=== PATIENT | female | born 1980 | race Caucasian/White ===

== ENCOUNTER 2023-12-02 06:15 | Day surgery (SDC) | payer OTHER ==
[2023-11-29 10:12] VITALS: BMI 23.6
[2023-12-02] MEDS ORDERED: PROPOFOL 40 ML ONE (06:55)
[2023-12-02] MEDS ORDERED: ONDANSETRON 4 MG/2 ML VIAL ONE (06:55)
[2023-12-02] MEDS ORDERED: LIDOCAINE HCL/PF 2% SDV 5ML VIAL ONE (06:55)
[2023-12-02] MEDS ORDERED: MIDAZOLAM HCL 2 MG/2 ML SINGLE DOSE VIAL ONE (06:55)
[2023-12-02] MEDS ORDERED: DEXAMETHASONE SOD PHOSPHATE 4 MG/1 ML VIAL ONE (06:55)
[2023-12-02] MEDS ORDERED: oxyCODONE HCL 5 MG TABLET PO PRN ×2 (07:08)
[2023-12-02] MEDS ORDERED: LACTATED RINGERS SOLUTION 1,000 ML IV SCH (07:15)
[2023-12-02] MEDS ORDERED: VANCOMYCIN 1,000 MG VIAL (RESTRICTED TO ID ONLY) ONE (07:25)
[2023-12-02] MEDS ORDERED: BUPIVACAINE HCL/PF 2.5 MG/ML - 30 ML VIAL IJ ONE ×2 (07:26→07:42)
[2023-12-02] MEDS ORDERED: EPINEPHrine 1:1,000 1,000 MCG/ML ML ONE (07:26)
[2023-12-02] MEDS ORDERED: EPINEPHrine/PF 1 MG/1 ML (1:1,000) AMPULE ONE (07:26)
[2023-12-02] MEDS ORDERED: DEXAMETHASONE SOD PHOSPHATE/PF 10 MG/ML SDV ONE (07:42)
[2023-12-02] MEDS ORDERED: ceFAZolin SODIUM 1 GM VIAL ONE ×2 (07:52→12:07)
[2023-12-02] MEDS ORDERED: PROPOFOL 20 ML ONE ×3 (08:00→11:17)
[2023-12-02] MEDS ORDERED: hydrALAZINE HCL 20 MG/ML VIAL ONE (08:37)
[2023-12-02] MEDS ORDERED: HYDROmorphone HCL/PF 1 MG/ML VIAL ONE (09:18)
[2023-12-02] MEDS ORDERED: TRANEXAMIC ACID 1000 MG/10 ML VIAL ONE ×2 (09:45→11:21)
[2023-12-02] MEDS ORDERED: KETOROLAC TROMETHAMINE 30 MG/1 ML VIAL ONE (12:25)
[2023-12-02] MEDS ORDERED: ACETAMINOPHEN INJECTION 100 ML IVPB ONE (12:25)
[2023-12-02] MEDS: ACETAMINOPHEN 1000 MG/100 ML BAG IVPB ONE (12:30)
[2023-12-02] MEDS: KETOROLAC TROMETHAMINE 30 MG/1 ML VIAL IM ONE (12:35)
[2023-12-02] MEDS ORDERED: FENTANYL CITRATE/PF 50 MCG/ML VIAL ONE (12:53)
[2023-12-02] MEDS: ONDANSETRON 4 MG/2 ML VIAL ONE (12:58)
[2023-12-02] MEDS: ONDANSETRON 4 MG/2 ML VIAL IVPUSH PRN (13:00)
[2023-12-02 13:23] VITALS: RESP 18
[2023-12-02 13:48] VITALS: PULSE 68; TEMP 98.7
[2023-12-02 14:38] VITALS: BP 106/58
== END 2023-12-02 14:38 | disposition home or self-care (01) ==
LOC: FASU 06:15
PROVIDERS: ATTEND Orthopaedic Surgery Sports Medicine
PROC: 0SQC4ZZ Repair Right Knee Joint, Percutaneous Endoscopic Approach (ICD-10-PCS; 2023-12-02)
PROC: 0MQN0ZZ Repair Right Knee Bursa and Ligament, Open Approach (ICD-10-PCS; principal; 2023-12-02 08:28)
DX: S83.411A Sprain of medial collateral ligament of right knee, initial encounter (principal); S83.281A Other tear of lateral meniscus, current injury, right knee, initial encounter; M65.9 Synovitis and tenosynovitis, unspecified; X58.XXXA Exposure to other specified factors, initial encounter; Y93.9 Activity, unspecified; Y92.9 Unspecified place or not applicable
CPT/HCPCS: 81025; 94760; C1713; J0131

== ENCOUNTER 2024-05-05 06:19 | Day surgery (SDC) | payer OTHER ==
[2024-04-29 12:28] VITALS: BMI 24.3
[2024-05-05] MEDS ORDERED: MIDAZOLAM HCL 2 MG/2 ML SINGLE DOSE VIAL ONE (07:09)
[2024-05-05] MEDS ORDERED: BUPIVACAINE LIPOSOME/PF (EXPAREL) 266 MG/20 ML VIAL ONE (07:12)
[2024-05-05] MEDS ORDERED: BUPIVACAINE HCL/PF 0.5% (5MG/ML) 10 ML VIAL ONE (07:13)
[2024-05-05] MEDS ORDERED: VANCOMYCIN 1,000 MG VIAL (RESTRICTED TO ID ONLY) ONE (07:28)
[2024-05-05] MEDS ORDERED: DEXAMETHASONE SOD PHOSPHATE 4 MG/1 ML VIAL ONE ×2 (08:01→09:57)
[2024-05-05] MEDS ORDERED: ONDANSETRON 4 MG/2 ML VIAL ONE ×2 (08:01→09:57)
[2024-05-05] MEDS ORDERED: ceFAZolin SODIUM 1 GM VIAL ONE (08:01)
[2024-05-05] MEDS ORDERED: TRANEXAMIC ACID 1000 MG/10 ML VIAL ONE (08:01)
[2024-05-05] MEDS ORDERED: PROPOFOL 20 ML ONE ×2 (08:04→09:01)
[2024-05-05 11:00] VITALS: RESP 18; TEMP 97
[2024-05-05] MEDS ORDERED: LACTATED RINGERS SOLUTION 1,000 ML IV SCH (11:15)
[2024-05-05] MEDS ORDERED: oxyCODONE HCL 5 MG TABLET PO PRN (12:03)
[2024-05-05] MEDS ORDERED: ACETAMINOPHEN 500 MG TABLET (FP) PO ONE (12:15)
[2024-05-05 13:07] VITALS: BP 112/68; PULSE 68
== END 2024-05-05 13:07 | disposition home or self-care (01) ==
LOC: FASU 06:19
PROVIDERS: ATTEND Orthopaedic Surgery Sports Medicine
PROC: 0MRN47Z Replacement of Right Knee Bursa and Ligament with Autologous Tissue Substitute, Percutaneous Endoscopic Approach (ICD-10-PCS; principal; 2024-05-05 08:24)
PROC: 0SSCXZZ Reposition Right Knee Joint, External Approach (ICD-10-PCS; 2024-05-05 08:24)
DX: S83.511A Sprain of anterior cruciate ligament of right knee, initial encounter (principal); S83.281A Other tear of lateral meniscus, current injury, right knee, initial encounter; M24.661 Ankylosis, right knee; M65.9 Synovitis and tenosynovitis, unspecified; M94.261 Chondromalacia, right knee; X58.XXXA Exposure to other specified factors, initial encounter; Y93.9 Activity, unspecified; Y92.9 Unspecified place or not applicable
CPT/HCPCS: 81025; 94760; C1713